=== PATIENT | female | born 1995 | race Hispanic/Latino ===

== ENCOUNTER 2017-07-14 14:02 | Emergency (ER) | payer SELFPAY ==
[2017-07-14 14:40] LABS: #Eosinphils 0.1 thou/uL (0.0-0.7); #Lymphocytes 2.3 thou/uL (1.20-3.40); #Monocytes 0.4 thou/uL (0.11-0.59); %Basophils 0.5 % (0.0-1.0); %Eosinophils 1.8 % (0.0-10.0); %Lymphocytes 33.3 % (28.0-48.0); Hematocrit 46.8 % (36.0-47.0); Red Blood Cell (RBC) Count 5.14 mill/uL (4.00-5.20); White Blood Cell (WBC) Count 6.8 thou/uL (4.8-10.8)
[2017-07-14 15:00] LABS: Bilirubin Negative (Negative); Blood, Urine Trace (Negative); Glucose, Urine (Dipstick) Negative (Negative); Ketone, Urine Negative (Negative); Nitrite Negative (Negative); Protein, Urine (Dipstick) Negative (Neg-Trace)
[2017-07-14 15:03] LABS: ALT (SGPT) 12 U/L (8-55); AST (SGOT) 15 U/L (5-34); Alkaline Phosphatase 90 U/L (40-150); Anion Gap 11 mmol/L (10-20); BUN (Urea Nitrogen) 11 mg/dL (7.0-18.7); Bilirubin, Total 0.6 mg/dL (0.2-1.2); Calc. Creatinine Clearance 0 mL/min (70-130); Calcium 9.4 mg/dL (7.8-10.44); Carbon Dioxide 26 mmol/L (22-29); Chloride 105 mmol/L (98-107); Estimated GFR-MDRD Greater than 90; Lipase 24 U/L (8-78); Protein, Total 7.4 g/dL (6.0-8.3)
[2017-07-14 15:14] LABS: Bacteria/HPF Rare-Few HPF (None Seen); Hyaline Casts/LPF 0-3 HYALINE CAST LPF (0-3 Hyaline); RBC/HPF 0-3 HPF (0-3); Squamous Epithelial 0-3 HPF (0-3); WBC/HPF 0-3 HPF (0-3)
--- NOTE | 2017-07-14 17:02 | ULT ---
PELVIC SONOGRAM TRANSVAGINAL IMAGING WITH DUPLEX EVALUATION 07/14/17 HISTORY: Pelvic pain. FINDINGS: The urinary bladder is decompressed. The uterus is retroverted with a heterogeneous echotexture and measures 7.4 cm in length. Endometrium is 0.9 cm in thickness with a small amount of endometrial flu id. No free fluid is evident within the pelvis. The right ovary is 4.3 cm in length and the left 3.4 cm. Each contains follicles and demonstrates good color and spectral doppler flow. IMPRESSION: Small amount of endometrial fluid. No significant abnormalities are demonstrated. POS: [facility]
== END 2017-07-14 17:38 | disposition home or self-care (01) ==
LOC: ERS 14:02
DX: R10.2 Pelvic and perineal pain (principal)
CPT/HCPCS: 36415; 76856; 80053; 81003; 81015; 83690; 84703; 85025; 87480; 87491; 87510; 87591; 87660; 96372; J2270

== ENCOUNTER 2017-10-23 03:53 | Emergency (ER) | payer OTHER, SELFPAY ==
[2017-10-23] MEDS ORDERED: diphenhydrAMINE 50 MG/ML VIAL ONE (04:21)
[2017-10-23] MEDS ORDERED: Ketorolac Tromethamine 30 MG/ML VIAL ONE (04:21)
[2017-10-23] MEDS ORDERED: Prochlorperazine 10 MG/2 ML VIAL ONE (05:02)
== END 2017-10-23 05:28 | disposition home or self-care (01) ==
LOC: SCSER 03:53
DX: R51 Headache (principal)
CPT/HCPCS: 96361; 96374; 96375; J0780; J1200; J1885

== ENCOUNTER 2017-10-29 17:48 | Emergency (ER) | payer OTHER ==
--- NOTE | 2017-10-29 18:41 | RAD ---
PORTABLE CHEST: 10/29/17 HISTORY: Cough. The lungs are clear. The heart and mediastinum are unremarkable. IMPRESSION: No acute abnormality. POS: [facility]
[2017-10-29 19:05] LABS: Bilirubin Negative (Negative); Blood, Urine Small (Negative); Clarity CLEAR (Clear); Glucose, Urine (Dipstick) Negative (Negative); Leukocyte Trace (Negative); Nitrite Negative (Negative); Protein, Urine (Dipstick) Negative (Neg-Trace); Specific Gravity, Urine 1.009 (1.002-1.036); Urobilinogen 0.2 mg/dL (0.2-1.0); pH, Urine 7.5 (5.0-9.0)
[2017-10-29 19:08] LABS: Bacteria/HPF Rare-Few HPF (None Seen); Hyaline Casts/LPF 0-3 HYALINE CAST LPF (0-3 Hyaline); Pathc Cast-AUWi Flag 0.13 (0-2.49); RBC/HPF None Seen HPF (0-3); Squamous Epithelial 0-3 HPF (0-3); WBC/HPF 0-3 HPF (0-3)
[2017-10-29 19:18] LABS: #Basophils 0.1 thou/uL (0.0-0.2); #Eosinphils 0.1 thou/uL (0.0-0.7); #Monocytes 0.4 thou/uL (0.11-0.59); #Neutrophils 5.3 thou/uL (1.40-6.50); %Basophils 0.7 % (0.0-1.0); %Eosinophils 1.2 % (0.0-10.0); %Lymphocytes 25.9 % (28.0-48.0); %Neutrophils 67.2 % (31.0-61.0); Hemoglobin 14.4 g/dL (12.0-16.0); Mean Corpuscular HGB CONC 33.8 g/dL (32.0-36.0); Mean Corpuscular Hemoglobin 30.9 pg (25.0-35.0); Mean Corpuscular Volume 91.5 fl (77.0-87.0); Mean Platelet Volume 7.1 fL (7.4-10.4); Platelet Count 276 thou/uL (130-400); RBC Distribution Width 11.6 % (11.5-14.5); Red Blood Cell (RBC) Count 4.64 mill/uL (4.00-5.20); White Blood Cell (WBC) Count 7.9 thou/uL (4.8-10.8)
[2017-10-29 19:22] LABS: BHCG - Serum Negative (NEGATIVE); Pregs Control Background? CLEAR/WHITE (CLR/WHITE); Pregs Control Bar Appear? YES (CONTROL BAR)
[2017-10-29] MEDS ORDERED: Morphine 4 MG/ML Carpuject ONE (19:36)
[2017-10-29] MEDS ORDERED: Ketorolac Tromethamine 30 MG/ML VIAL ONE (19:36)
[2017-10-29 19:37] LABS: ALT (SGPT) 9 U/L (8-55); AST (SGOT) 14 U/L (5-34); Albumin 4.2 g/dL (3.5-5.0); Alkaline Phosphatase 98 U/L (40-150); Anion Gap 12 mmol/L (10-20); BUN (Urea Nitrogen) 10 mg/dL (7.0-18.7); Bilirubin, Total 0.6 mg/dL (0.2-1.2); Calc. Creatinine Clearance 0 mL/min (70-130); Calcium 8.9 mg/dL (7.8-10.44); Carbon Dioxide 22 mmol/L (22-29); Chloride 109 mmol/L (98-107); Estimated GFR-MDRD Greater than 90; Globulin 2.6 g/dL (2.4-3.5); Glucose 87 mg/dL (70-105); Potassium 3.8 mmol/L (3.5-5.1); Protein, Total 6.8 g/dL (6.0-8.3); Sodium 139 mmol/L (136-145)
--- NOTE | 2017-10-29 20:04 | CT ---
CT HEAD WITHOUT CONTRAST 10/29/17 Multiple axial tomograms obtained through the head without IV enhancement. HISTORY: Headache. Ventricles have normal size and position. There is no evidence of intracranial mass or hemorrhage. Si nuses and mastoids are well aerated and clear. IMPRESSION: No acute abnormality. POS: [facility]
--- NOTE | 2017-10-29 20:41 | CT ---
CT CERVICAL SPINE: 10/29/17 Multiple axial tomograms were obtained of the cervical spine with multiplanar reconstruction. HISTORY: Headache and neck pain. Cervical vertebrae maintain normal height and alignment. No fracture. No abnormality identified. IMPRESSION: Unremarkable CT cervical spine. POS: [facility]
[2017-10-29 20:42] LABS: Color Of CSF Supernatant COLORLESS (Colorless); Tube # 2; Unspun CSF Color COLORLESS (Colorless)
[2017-10-29 20:49] LABS: CSF Source CSF; Clarity Clear (Clear); RBC Count - Manual 0 /cumm (None Seen); RBC Count - Manual 38 /cumm (None Seen); Tube # 1; Tube # 4; WBC/NonHematics Count - Manual 2 /cumm (0-5); WBC/NonHematics Count - Manual 4 /cumm (0-5)
[2017-10-29 22:07] LABS: CSF, Glucose 60 mg/dl (40-70)
[2017-10-29 22:12] LABS: CSF, Protein 24 mg/dL (15-40)
[2017-10-29] MEDS ORDERED: diphenhydrAMINE 50 MG/ML VIAL ONE (22:26)
[2017-10-29] MEDS ORDERED: Metoclopramide HCl 10 MG/2 ML VIAL ONE (22:26)
--- NOTE | 2017-10-30 04:11 | PDOC.OP ---
Operative Note - Operative Note Operative Note: PROCEDURE: LUMBAR PUNCTURE DATE: 10/29/17 INDICATION: Headache, Neck pain/stiffness PROCEDURE PRINT [employer]OP STENOGRAPHER: Maty Jim MD ATTENDING PHYSICIAN: Dakota Nj MD In Attendance Yes CONSENT: Consent was obtained from the patien prior to the procedure. Indications, risks , and benefits were explained at length. PROCEDURE SUMMARY: A time-out was performed. My hands were washed immediately prior to the procedure. I wore a mask with protective and sterile gloves throughout the procedure. The patient was placed in the seated position with help from the nursing staff. The area was cleansed and draped in usual sterile fashion using betadine scrub. Anesthesia was achieved with 1% lidocaine. A 20-gauge 3.5-inch spinal needle was placed in the L4-L5 lumbar interspace. On the first attempt, clear colored cerebral spinal fluid was obtained. CSF was collected into 4 tubes. These were sent for the usual tests, including 1 tube to be held for further analysis if needed. A sterile bandaid was placed over the puncture site. The patient had no immediate complications and tolerated the procedure well. Estimated blood loss was <10 mL.
== END 2017-10-29 22:50 | disposition home or self-care (01) ==
LOC: ERS 17:48
DX: R51 Headache (principal); M54.2 Cervicalgia
CPT/HCPCS: 36415; 62270; 70450; 71045; 72125; 80053; 81003; 81015; 82945; 83605; 84157; 84703; 85025; 87040; 87070; 87081; 87086; 87205; 87430; 89051; 94760; 96361; 96365; 96375; J1200; J1885; J2270; J2765

== ENCOUNTER 2018-05-22 18:43 | Emergency (ER) | payer OTHER ==
[2018-05-22 19:30] LABS: #Eosinphils 0.1 thou/uL (0.0-0.7); #Lymphocytes 2.2 thou/uL (1.20-3.40); #Monocytes 0.5 thou/uL (0.11-0.59); #Neutrophils 6.5 thou/uL (1.40-6.50); %Basophils 0.3 % (0.0-1.0); %Eosinophils 0.8 % (0.0-10.0); %Lymphocytes 23.8 % (21.0-51.0); %Monocytes 4.9 % (0.0-10.0); %Neutrophils 70.1 % (42.0-75.0); Hemoglobin 15.3 g/dL (12.0-16.0); Mean Corpuscular Hemoglobin 31.2 pg (27.0-31.0); Mean Corpuscular Volume 89.2 fL (78.0-98.0); Mean Platelet Volume 6.9 fL (7.4-10.4); Platelet Count 271 thou/uL (130-400); RBC Distribution Width 11.7 % (11.5-14.5); White Blood Cell (WBC) Count 9.2 thou/uL (4.8-10.8)
[2018-05-22 20:08] LABS: Bilirubin Negative (Negative); Blood, Urine Large (Negative); Clarity CLEAR (Clear); Glucose, Urine (Dipstick) Negative (Negative); Leukocyte Negative (Negative); Nitrite Negative (Negative); Protein, Urine (Dipstick) Negative (Neg-Trace); Specific Gravity, Urine 1.007 (1.002-1.036)
[2018-05-22] MEDS ORDERED: Ketorolac Tromethamine 60 MG/2 ML VIAL ONE (20:10)
[2018-05-22 20:11] LABS: Bacteria/HPF None Seen HPF (None Seen); Hyaline Casts/LPF 0-3 HYALINE CAST LPF (0-3 Hyaline); RBC/HPF GREATER THAN 50-TNTC HPF (0-3); Squamous Epithelial None Seen HPF (0-3); WBC/HPF 0-3 HPF (0-3)
--- NOTE | 2018-05-22 21:27 | ULT ---
PELVIC ULTRASOUND: Comparison: None. Date: 05-22-18 History: Positive test, vaginal bleeding. Technique: Multiplanar sonographic imaging of the pelvis was obtained with endovaginal imaging. The o varies are assessed with color flow and spectral analysis. FINDINGS: The uterus is retroflexed and measures 9.6 x 4.5 x 6.0 cm. The endometrial stripe measures approximat talon 9 mm in transverse dimension. No intrauterine gestational sac is noted. Left ovary measures 2.6 x 1.8 x 3.2 cm and demonstrates normal blood flow without evidence for mass. Right ovary measures 3.9 x 2.1 x 2.3 cm and demonstrates normal blood flow without evidence for mass. There is trace free fluid seen in the pelvic cul-de-sac. IMPRESSION: No intrauterine gestational sac seen. This could signify a normal early , spontaneous aborti on or sonographically occult ectopic . Correlation with quantitative Beta HCG at this time a nd in 48 hours is advised. If clinically warranted, follow up pelvic ultrasound in 48 hours may be be neficial as well. POS: [facility]
== END 2018-05-22 20:37 | disposition home or self-care (01) ==
LOC: ERS 18:43
DX: O20.0 Threatened abortion (principal); Z3A.08 8 weeks gestation of pregnancy
CPT/HCPCS: 36415; 76856; 81003; 81015; 84702; 85025; 86900; 86901; 96372; J1885

== ENCOUNTER 2018-10-24 03:24 | Emergency (ER) | payer OTHER ==
[2018-10-24] MEDS ORDERED: diphenhydrAMINE 50 MG/ML VIAL ONE (03:33)
[2018-10-24] MEDS ORDERED: methylPREDNISolone Sod Succ/PF 125 MG/2 ML VIAL ONE (03:33)
[2018-10-24] MEDS ORDERED: Metoclopramide HCl 10 MG/2 ML VIAL ONE (03:33)
[2018-10-24] MEDS ORDERED: Ketorolac Tromethamine 30 MG/ML VIAL ONE (03:33)
== END 2018-10-24 04:41 | disposition home or self-care (01) ==
LOC: SCSER 03:24
DX: R51 Headache (principal)
CPT/HCPCS: 96365; 96375; J1200; J1885; J2765; J2930

== ENCOUNTER 2019-01-02 13:04 | Outpatient (CLI) | payer OTHER ==
--- NOTE | 2019-01-02 15:23 | ULT ---
TRANSABDOMINAL AND TRANSVAGINAL PELVIC ULTRASOUND WITH AYERS SCALE AND COLOR FLOW AND SPECTRAL DOPPLER IMAGING: HISTORY: Pain in the left lower quadrant and vaginal spotting. FINDINGS: The uterus measures 7.9 x 4 x 7.4 cm. The right ovary measures 2.9 x 3.1 x 1.3 cm. The left ovary m easures 3.2 x 1.8 x 2.5. There is a 2.3 cm cyst. Flow is demonstrated to both ovaries. No free flu id is seen in the cul-de-sac. A single intrauterine gestational sac is seen in the lower endometrial cavity with heart rate o f 126 b.p.m. [place]-rump length measure s0.8 cm corresponding to an estimated gestational age of 6 we eks 5 days and CAMILA at 08/23/2019. IMPRESSION: Single live intrauterine of 6 weeks 5 days, estimated gestational age and estimated date of delivery at 08/23/2019. POS: [facility]
== END 2019-01-02 13:05 | disposition home or self-care (01) ==
LOC: ULT 13:04
PROVIDERS: ATTEND Family Medicine
DX: O99.89 Other specified diseases and conditions complicating pregnancy, childbirth and the puerperium (principal); R10.32 Left lower quadrant pain; Z3A.01 Less than 8 weeks gestation of pregnancy; Z32.01 Encounter for pregnancy test, result positive
CPT/HCPCS: 36415; 76856; 84702

== ENCOUNTER 2019-02-12 18:20 | Emergency (ER) | payer OTHER ==
[2019-02-12 20:10] LABS: #Eosinphils 0.1 thou/uL (0.0-0.7); #Lymphocytes 2.5 thou/uL (1.20-3.40); #Monocytes 0.5 thou/uL (0.11-0.59); #Neutrophils 6.3 thou/uL (1.40-6.50); %Basophils 0.4 % (0.0-1.0); %Lymphocytes 26.2 % (21.0-51.0); %Monocytes 5.2 % (0.0-10.0); %Neutrophils 67.2 % (42.0-75.0); Hemoglobin 12.1 g/dL (12.0-16.0); Mean Corpuscular HGB CONC 34.2 g/dL (32.0-36.0); Mean Corpuscular Hemoglobin 30.3 pg (27.0-31.0); Mean Corpuscular Volume 88.8 fL (78.0-98.0); Mean Platelet Volume 7.3 fL (7.4-10.4); Platelet Count 257 thou/uL (130-400); RBC Distribution Width 11.7 % (11.5-14.5); Red Blood Cell (RBC) Count 3.98 mill/uL (4.20-5.40); White Blood Cell (WBC) Count 9.4 thou/uL (4.8-10.8)
[2019-02-12] MEDS ORDERED: Acetaminophen 500 MG TAB ONE (20:21)
[2019-02-12 20:32] LABS: ALT (SGPT) 12 U/L (8-55); AST (SGOT) 13 U/L (5-34); Albumin 3.9 g/dL (3.5-5.0); Alkaline Phosphatase 55 U/L (40-150); Anion Gap 11 mmol/L (10-20); BUN (Urea Nitrogen) 7 mg/dL (7.0-18.7); Bilirubin, Total 0.4 mg/dL (0.2-1.2); Calc. Creatinine Clearance 0 mL/min (70-130); Calcium 9.1 mg/dL (7.8-10.44); Carbon Dioxide 24 mmol/L (22-29); Chloride 105 mmol/L (98-107); Estimated GFR-MDRD Greater than 90; Globulin 2.5 g/dL (2.4-3.5); Glucose 81 mg/dL (70-105); Lipase 20 U/L (8-78); Potassium 3.4 mmol/L (3.5-5.1); Protein, Total 6.4 g/dL (6.0-8.3); Sodium 137 mmol/L (136-145)
[2019-02-12 20:43] LABS: Bilirubin Negative (Negative); Blood, Urine Negative (Negative); Clarity CLOUDY (Clear); Glucose, Urine (Dipstick) Negative (Negative); Leukocyte Trace (Negative); Nitrite Negative (Negative); Protein, Urine (Dipstick) Negative (Neg-Trace); pH, Urine 7.5 (5.0-9.0)
[2019-02-12 20:44] LABS: Bacteria/HPF None Seen HPF (None Seen); Hyaline Casts/LPF 0-3 HYALINE CAST LPF (0-3 Hyaline); RBC/HPF 0-3 HPF (0-3); WBC/HPF 0-3 HPF (0-3)
--- NOTE | 2019-02-12 21:16 | ULT ---
Right upper quadrant ultrasound: 02/12/2019 COMPARISON: None HISTORY: Right-sided pain TECHNIQUE: Multiplanar grayscale sonographic imaging of the right upper quadrant provided. FINDINGS: The pancreas is grossly unremarkable. No focal liver lesion or intrahepatic biliary dilatat ion is seen. 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 The common bile duct measures 3 mm, within normal limits. The right kidney measures 10.3 cm in craniocaudal dimension and demonstrates no stone hydronephrosis or mass lesion. IMPRESSION: Unremarkable right upper quadrant ultrasound aside from positive Tolbert sign.
--- NOTE | 2019-02-12 22:08 | ULT ---
PELVIC ULTRASOUND: Date: 02-12-19 Comparison: None. History: Pelvic/right sided pain. 29-year-old female. Technique: Multiplanar grayscale sonographic imaging of the pelvis obtained. FINDINGS: The cervix measures 3.6 cm. A single intrauterine gestation is noted. No evidence for placental previ a or abruption. Right ovary measures 2.1 x 1.3 cm and demonstrates normal appearance. Left ovary measures 4.0 x 1.6 x 3.1 cm and demonstrates a normal appearance. The appendix could not be visualized on this exam. Feta l heart rate is 160 beats/minute. biometry: BPD 2.1 cm 13 weeks 2 days HC 8.3 cm 13 weeks 4 days AC 6.4 cm 13 weeks 1 days FL 9 mm 12 weeks 5 days Average age based on ultrasound is 13 weeks 0 days with estimated date of delivery on 08-20-19. Amnio tic fluid volume is qualitatively normal. anatomy could not be assessed at this gestational age. IMPRESSION: Single intrauterine gestation with heart rate of 160 beats/minute. The appendix could not be vi sualized on this exam. POS: [facility]
[2019-02-14 22:32] LABS: Chlamydia by PCR Not Detected (NotDetected); GC by PCR Not Detected (NotDetected)
== END 2019-02-12 23:20 | disposition home or self-care (01) ==
LOC: ERS 18:20
DX: O99.89 Other specified diseases and conditions complicating pregnancy, childbirth and the puerperium (principal); R10.11 Right upper quadrant pain; Z3A.13 13 weeks gestation of pregnancy
CPT/HCPCS: 36415; 76705; 76856; 80053; 81003; 81015; 83690; 84702; 85025; 87480; 87491; 87510; 87591; 87660; 96360

== ENCOUNTER 2019-02-20 15:43 | Emergency (ER) | payer OTHER ==
[2019-02-20 16:09] LABS: #Eosinphils 0.3 thou/uL (0.0-0.7); #Lymphocytes 2.1 thou/uL (1.20-3.40); #Monocytes 0.6 thou/uL (0.11-0.59); #Neutrophils 6.5 thou/uL (1.40-6.50); %Basophils 0.3 % (0.0-1.0); %Eosinophils 2.7 % (0.0-10.0); %Monocytes 6.2 % (0.0-10.0); %Neutrophils 68.8 % (42.0-75.0); Mean Corpuscular HGB CONC 35.3 g/dL (32.0-36.0); Mean Corpuscular Volume 87.7 fL (78.0-98.0); Platelet Count 248 thou/uL (130-400); RBC Distribution Width 11.7 % (11.5-14.5); Red Blood Cell (RBC) Count 3.89 mill/uL (4.20-5.40); White Blood Cell (WBC) Count 9.5 thou/uL (4.8-10.8)
[2019-02-20] MEDS ORDERED: Acetaminophen 325 MG TAB ONE (16:57)
[2019-02-20 17:17] LABS: Bilirubin Negative (Negative); Blood, Urine Negative (Negative); Clarity CLEAR (Clear); Glucose, Urine (Dipstick) Negative (Negative); Leukocyte Negative (Negative); Nitrite Negative (Negative); Protein, Urine (Dipstick) Negative (Neg-Trace); Specific Gravity, Urine 1.005 (1.002-1.036); Urobilinogen 0.2 mg/dL (0.2-1.0)
--- NOTE | 2019-02-20 17:51 | ULT ---
Limited obstetrical ultrasound: 02/20/2019 COMPARISON: None HISTORY: Abdominal pain for 2 hours TECHNIQUE: Multiplanar grayscale sonographic imaging of the gravid uterus obtained. FINDINGS: Single intrauterine gestation present with breech presentation and heart rate of 155 bpm. Cervical length is approximately 3.2 cm. Amniotic fluid volume appears qualitatively normal. Placenta located anteriorly with no evidence for previa or abruption. biometry: Biparietal diameter 2.5 cm 14 weeks 2 days Head circumference 9.6 cm 14 weeks 3 days Abdominal circumference 8.2 cm 14 weeks 4 days Femur length 1.3 cm 13 weeks 6 days Average age based on ultrasound is 14 weeks 2 days. Estimated date of delivery is 08/19/2019. IMPRESSION: Unremarkable limited obstetrical ultrasound.
== END 2019-02-20 18:50 | disposition home or self-care (01) ==
LOC: ERS 15:43
DX: O99.89 Other specified diseases and conditions complicating pregnancy, childbirth and the puerperium (principal); R10.32 Left lower quadrant pain; Z3A.14 14 weeks gestation of pregnancy
CPT/HCPCS: 36415; 76805; 81003; 84702; 85025; 86900; 86901

== ENCOUNTER 2019-03-26 14:14 | Emergency (ER) | payer OTHER ==
[2019-03-26] MEDS ORDERED: Acetaminophen 325 MG TAB ONE (14:47)
[2019-03-26 14:52] LABS: Hemoglobin 12.5 g/dL (12.0-16.0); Mean Corpuscular HGB CONC 34.7 g/dL (32.0-36.0); Mean Corpuscular Volume 89.5 fL (78.0-98.0); Mean Platelet Volume 7.2 fL (7.4-10.4); Platelet Count 231 thou/uL (130-400); RBC Distribution Width 12.2 % (11.5-14.5); Red Blood Cell (RBC) Count 4.02 mill/uL (4.20-5.40); White Blood Cell (WBC) Count 16.7 thou/uL (4.8-10.8)
[2019-03-26 15:09] LABS: Band 13 % (5-11); Lymphocytes 10 % (21-51); MDiff Complete? YES; Monocytes 3 % (0-10); Neutrophil 72 % (42-75); Platelet Morphology Comment Appears Adequate; RBC Morphology Normal; Reactive Lymphocytes 2 % (0-10)
[2019-03-26] MEDS ORDERED: diphenhydrAMINE 50 MG/ML VIAL ONE (15:09)
[2019-03-26] MEDS ORDERED: Metoclopramide HCl 10 MG/2 ML VIAL ONE (15:09)
[2019-03-26 15:11] LABS: ALT (SGPT) 10 U/L (8-55); AST (SGOT) 14 U/L (5-34); Albumin 3.8 g/dL (3.5-5.0); Alkaline Phosphatase 71 U/L (40-150); Anion Gap 13 mmol/L (10-20); BUN (Urea Nitrogen) 5 mg/dL (7.0-18.7); Bilirubin, Total 0.5 mg/dL (0.2-1.2); CK (CPK) 50 U/L (29-168); Calc. Creatinine Clearance 0 mL/min (70-130); Carbon Dioxide 23 mmol/L (22-29); Chloride 104 mmol/L (98-107); Estimated GFR-MDRD Greater than 90; Globulin 2.9 g/dL (2.4-3.5); Glucose 83 mg/dL (70-105); Potassium 3.4 mmol/L (3.5-5.1); Protein, Total 6.7 g/dL (6.0-8.3); Sodium 137 mmol/L (136-145)
[2019-03-26 15:17] LABS: Bilirubin Negative (Negative); Blood, Urine Negative (Negative); Clarity CLEAR (Clear); Glucose, Urine (Dipstick) Negative (Negative); Leukocyte Trace (Negative); Nitrite Negative (Negative); Protein, Urine (Dipstick) Negative (Neg-Trace); Specific Gravity, Urine 1.004 (1.002-1.036)
[2019-03-26 15:19] LABS: Bacteria/HPF None Seen HPF (None Seen); Hyaline Casts/LPF 0-3 HYALINE CAST LPF (0-3 Hyaline); Pathc Cast-AUWi Flag 0.13 (0-2.49); RBC/HPF None Seen HPF (0-3); Squamous Epithelial 0-3 HPF (0-3); WBC/HPF None Seen HPF (0-3)
--- NOTE | 2019-03-26 15:52 | CT ---
CT BRAIN WITHOUT CONTRAST: HISTORY: Headache. FINDINGS: Comparison is made with the exam of 10/29/2017. No evidence of infarct, hemorrhage, midline shift, or abnormal extraaxial fluid collections are seen. The ventricular size is normal and the basilar cisterns patent. The bony calvarium is intact. The visualized paranasal sinuses and mastoid air cells are well aerated. IMPRESSION: No CT evidence of acute intracranial process. POS: [facility]
--- NOTE | 2019-03-26 15:57 | RAD ---
PORTABLE CHEST 1 VIEW: DATE: 03/26/2019. TIME: 3:04 p.m. HISTORY: Chest pain. FINDINGS: Comparison is made with the exam of 10/29/2017. The cardiomediastinum is normal. The lungs are expanded and clear. The bony thorax is normal. IMPRESSION: Normal exam. POS: [facility]
[2019-03-26] MEDS ORDERED: Sucralfate 1 GM/10 ML UDCUP ONE (16:01)
--- NOTE | 2019-03-26 16:22 | ULT ---
BILATERAL LOWER EXTREMITY VENOUS DOPPLER ULTRASOUND: HISTORY: A 19-week female (24-year-old) with bilateral lower extremity calf pain. TECHNIQUE: Ramírez-scale ultrasound with color-flow and spectral Doppler imaging of the deep venous systems of the lower extremities was performed bilaterally. FINDINGS: There is good flow, compressibility, and augmentation noted in the common femoral, femoral, deep femo ral, popliteal, posterior tibial, and greater saphenous veins. IMPRESSION: No evidence of deep venous thrombosis in either lower extremity. POS: [facility]
--- NOTE | 2019-03-26 17:01 | MRI ---
MR ANGIOGRAPHY OF THE CEREBRAL CIRCULATION: INDICATIONS: Headache. TECHNIQUE: MR angiogram performed of the cerebral circulation without IV contrast. [id number] images without contrast obtained with multiplanar reconstruction and 3D post processin g. FINDINGS: Artifact obscures portions of the intracranial internal carotid arteries. The cerebral arteries are poorly evaluated but appear patent. The anterior cerebral arteries, the mi ddle cerebral arteries, and the posterior cerebral arteries appear patent and symmetric. The basilar artery is patent. IMPRESSION: Limited examination due to motion artifact. No abnormality identified. POS: [facility]
--- NOTE | 2019-03-26 17:05 | MRI ---
MR VENOGRAM OF THE CEREBRAL CIRCULATION: INDICATIONS: Headache. Assess for venous thrombosis. TECHNIQUE: MR venogram of the cerebral circulation is obtained with [id number] imaging without contrast with multiplanar reconstruction and 3D post processing. FINDINGS: The dural venous sinuses are patent. The sagittal sinus, the transverse sinus, and the sigmoid sinus appear patent. There is mild narrowing of the left transverse sinus. There is no evidence of dural venous sinus thrombosis. IMPRESSION: The dural venous sinuses are patent. POS: [facility]
--- NOTE | 2019-03-26 17:52 | MRI ---
MRI BRAIN WITHOUT CONTRAST: INDICATIONS: Headache. TECHNIQUE: Multiplanar, multisequential imaging of the brain obtained. FINDINGS: The exam is limited due to artifact from dental appliances. The diffusion-weighted sequence is subop timal. There is motion artifact on the other sequences. The ventricles have normal size and position. There is no evidence of mass or edema. No significant white matter abnormality identified. The cerebral arteries show expected flow voids. The dural mark ous sinuses appear patent. IMPRESSION: No acute findings. POS: [facility]
== END 2019-03-26 19:11 | disposition home or self-care (01) ==
LOC: ERS 14:14
DX: O99.89 Other specified diseases and conditions complicating pregnancy, childbirth and the puerperium (principal); R51 Headache; R42 Dizziness and giddiness; Z3A.19 19 weeks gestation of pregnancy
CPT/HCPCS: 70450; 70544; 70551; 71045; 80053; 81003; 81015; 82550; 84484; 84702; 85025; 93005; 93970; 96361; 96374; 96375; J1200; J2765

== ENCOUNTER 2019-04-20 08:42 | Outpatient (CLI) | payer OTHER ==
--- NOTE | 2019-04-20 11:08 | ULT ---
OB ULTRASOUND: INDICATION: anatomy. FINDINGS: Single viable intrauterine . Gestational age by ultrasound is 22 weeks 6 days. BPD: 23 weeks 0 days. HC: 23 weeks 0 days. AC: 22 weeks 5 days. FL: 22 weeks 3 days. EFW: 516 grams. Placenta: Anterior. Presentation: Vertex. heart rate: 138. Amniotic fluid volume: Adequate. GARRET of 12.38 cm. Cervical length: 5.6 cm. anatomy evaluated including intracranial contents: 4-chamber heart, stomach, kidneys, cord ins ertion, bladder, spine, lips, nose, extremities, and 3-vessel cord. No abnormality identified. IMPRESSION: A 22-week 6-day gestation by ultrasound measurement. No abnormality identified. POS: [facility]
== END 2019-04-20 08:43 | disposition home or self-care (01) ==
LOC: BICULT 08:42
PROVIDERS: ATTEND Family Medicine
DX: Z34.92 Encounter for supervision of normal pregnancy, unspecified, second trimester (principal); Z3A.22 22 weeks gestation of pregnancy
CPT/HCPCS: 76805

== ENCOUNTER 2019-06-26 17:25 | Day surgery (SDC) | payer OTHER ==
[2019-06-26 17:51] VITALS: BP 101/63; TEMP 98.2; BMI 28.3
[2019-06-26] MEDS ORDERED: hydrALAZINE 20 MG/ML VIAL SLOW IVP PRN (18:02)
[2019-06-26] MEDS ORDERED: Lactated Ringer's 1,000 ML IV SCH ×2 (18:15)
--- NOTE | 2019-06-26 19:13 | ULT ---
EXAM: Pelvic ultrasound HISTORY: 31 week old with pain. Evaluate cervical length, position, and GARRET COMPARISON: None TECHNIQUE: Multiple grayscale and color Doppler images were obtained in a limited transabdominal pelv ic ultrasound. FINDINGS: There is an intrauterine in cephalic presentation with heart rate of 122 bpm. The cervix is normal in length measuring 4 cm. The placenta is anterior in location without evidence of placenta previa. GARRET is 7.3 cm, which is normal. IMPRESSION: Single live intrauterine in cephalic presentation
--- NOTE | 2019-06-26 19:52 | PRG ---
DATE OF SERVICE: 06/26/2019 PRESENTING COMPLAINT: Possible contractions at 32 weeks' gestation. HISTORY OF PRESENT ILLNESS: Ms. Vines is a 24-year-old 4, para 2, AB1, x1, who presents complaining of possible contractions. Denies rupture of membranes. The patient reports she had a previous 35-week labor and a 37-week early term delivery. She sees Dr. Andrés Torres and reports uncomplicated . STEAM TABLE WORKER HISTORY: As noted. The patient has not had corticosteroids and is not receiving progesterone IM. Antepartum record is not on the unit. MEDICAL HISTORY: None. SURGICAL HISTORY: None. ALLERGIES: DENIES. MEDICATIONS: vitamins. SOCIAL HISTORY: Denies tobacco, alcohol, or drug abuse. FAMILY HISTORY: Noncontributory. REVIEW OF SYSTEMS: Noncontributory. PHYSICAL EXAMINATION: GENERAL: female, in no acute distress. VITAL SIGNS: Temperature 98.5, respirations 18, pulse 85, blood pressure 118/72. HEENT: Within normal limits. LUNGS: Clear to auscultation bilaterally. HEART: Regular rhythm. BREASTS: No masses bilaterally. ABDOMEN: Soft and nontender without rebound or guarding. VULVA: Without lesions. VAGINA: Without discharge. CERVIX: Soft, closed, long and high. Cephalic presentation. EXTREMITIES: Without clubbing, cyanosis, or edema. fibronectin was collected, but the patient revealed that she and her had intercourse the night before and so results would be invalid. Ultrasound was performed, it revealed a vertex presentation and GARRET of 7.3, and a cervix measuring 4 cm in length. monitoring is carried out for greater than an hour. No significant contractions were noted. A category 1 heart rate tracing was noted with baseline of 140s. IMPRESSION: Discomforts of , no evidence of labor at 32 weeks' gestation. PLAN: Discharge home. ER precautions. Keep scheduled followup with Dr. Torres. Job ID: [id number]
== END 2019-06-26 19:35 | disposition home or self-care (01) ==
LOC: L&D/OP 17:25
PROVIDERS: ATTEND Family Medicine
DX: O47.03 False labor before 37 completed weeks of gestation, third trimester (principal); Z3A.32 32 weeks gestation of pregnancy
CPT/HCPCS: 76815; 96360; 96361; 99282

== ENCOUNTER 2019-07-08 13:50 | Day surgery (SDC) | payer OTHER ==
[2019-07-08 14:19] VITALS: BMI 28.9
[2019-07-08] MEDS ORDERED: hydrALAZINE 20 MG/ML VIAL SLOW IVP PRN (15:02)
[2019-07-08] MEDS ORDERED: Lactated Ringer's 2,000 ML IV SCH (15:15)
[2019-07-08] MEDS ORDERED: Acetaminophen 500 MG TAB PO SCH (15:45)
--- NOTE | 2019-07-08 16:08 | PRG ---
DATE OF SERVICE: 07/08/2019 PRIMARY OB: Andrés Torres MD CHIEF COMPLAINT: Abdominal pain. HISTORY OF PRESENT ILLNESS: The patient is a 24-year-old, G4, P2 female with an intrauterine at 34 weeks and a day, who presented after experiencing uterine contractions, painful, lasting about 30 to 40 seconds every 7 to 8 minutes downstairs in telemetry. The patient had been put on light duty due to significant ligament pain since about 16 weeks' gestation. The patient reports that she continues to have ligament pain that she has noticed since early in her since second trimester. She states that these pains are different that they come and go like contractions. She does have a history of a delivery at 35 weeks with her previous and at 37 weeks. The patient was initially seen in the emergency room downstairs. Her cervix was checked and found to be 1 cm dilated. The patient reports she has had intercourse within the last 24 hours. The patient denies any recent illness with fever, cough, headache, chest pain, shortness of breath, nausea, vomiting, diarrhea, constipation, hip problems, knee problems, muscle weakness, vaginal bleeding or leakage of fluid, diarrhea or constipation, urinary urgency or frequency. PAST MEDICAL HISTORY: Negative. PAST SURGICAL HISTORY: Negative. ALLERGIES: NO KNOWN DRUG ALLERGIES. MEDICATIONS: vitamins. SOCIAL HISTORY: Denies drug, alcohol, or tobacco use. REVIEW OF SYSTEMS: Per HPI. PHYSICAL EXAMINATION: VITAL SIGNS: Blood pressure 116/69, heart rate of 96, respiratory rate of 18, temperature 97.9. GENERAL: She appears to be in no acute distress. She is alert and oriented, cooperative, and pleasant to interact with. HEAD: Normocephalic, atraumatic. LUNGS: Clear to auscultation bilaterally. HEART: Regular rate and rhythm. ABDOMEN: Gravid, soft. She does have tenderness to palpation of the uterus to the left than the right in her lower pelvis. She has SI joint tenderness more on the right than the left. She has no CVA tenderness. No paravertebral tenderness. LUNGS: Clear to auscultation bilaterally. HEART: Regular rate and rhythm. The patient is alert and oriented. CERVICAL: Per nursing staff upon coming to the floor, is 1, 30, and -2 station. The uterus palpated soft when the patient reports she is having a contraction. heart tracing shows the fetus at a baseline in the 120s with moderate long-term variability, positive 15 x 15 accelerations, no decelerations. No contractions visible on the monitor. ASSESSMENT AND PLAN: The patient is a 24-year-old female with an intrauterine at 34 weeks and a day and a history of delivery at 35 weeks, presenting for uterine contractions that we were unable to identify on the monitor. The patient is likely experiencing contractions secondary to intercourse in the last 24 hours. She has no evidence of labor at this time. We will hydrate her as she does have an IV in place from the ER evaluation and will get her something to eat and re-evaluate in the next hour or two. The patient does have a history of delivery. However, with a long-closed cervix, at this time I do not anticipate labor. If there is no change in her cervix, we will plan on discharging the patient home. She does have an appointment on Wednesday with her doctor, Dr. Torres. Job ID: [id number]
== END 2019-07-08 16:45 | disposition home or self-care (01) ==
LOC: L&D/OP 13:50
PROVIDERS: ATTEND Family Medicine
DX: O47.03 False labor before 37 completed weeks of gestation, third trimester (principal); O99.89 Other specified diseases and conditions complicating pregnancy, childbirth and the puerperium; R10.2 Pelvic and perineal pain; O09.213 Supervision of pregnancy with history of pre-term labor, third trimester; Z3A.34 34 weeks gestation of pregnancy
CPT/HCPCS: 96360; 96361; 99283

== ENCOUNTER 2019-07-28 17:32 | Day surgery (SDC) | payer OTHER ==
[2019-07-28] MEDS ORDERED: hydrALAZINE 20 MG/ML VIAL SLOW IVP PRN (17:41)
[2019-07-28 18:04] VITALS: BP 117/66; TEMP 98.6
[2019-07-28 18:05] VITALS: BMI 29.2
[2019-07-28 18:35] LABS: Amnisure Test No Membranes Rupture (No Rupture)
[2019-07-28 18:36] LABS: Amnisure Internal Control QC ACCEPTABLE (ACCEPTABLE)
--- NOTE | 2019-07-28 19:34 | PDOC.LDHP ---
Labor and Delivery H&P Chief complaint: loss of fluid HPI: 24 y/o at 37w0d, patient of Dr. Andrés Torres, presents with leaking fluid today at work and irregular ctx. Denies VB or decrease FM. ROS neg for HEENT, cv, pulm, gi, gu, neuro, psych, skin, musculoskeletal or constitutional symptoms other than mentioned above. OB History Details: 2 prior Current complications: none Past Medical History: None Current medications: pre-quincy vitamins Previous surgical history: none Allergies/Adverse Reactions: Allergies Allergy/AdvReac Type Severity Reaction Status Date / Time No Known Allergies Allergy Verified 07/08/19 14:17 Social history: none - Physical Exam Vital signs reviewed and normal: yes General: NAD, resting Lungs: nonlabored breathing Abdomen: gravid Extremeties: no edema FHT: category 1 (120s, mod variability, + accels, no decels) [place] contractions every: irregular - Vaginal Exam cm dilated: 1 (SSE neg for pooling or valsalva) Effacement: 0% Station: -3 - Assessment 24 y/o at 37w0d with no e/o SROM (amnisure negative, no pooling/ valsalva on SSE). status reassuring with reactive NST. - Plan -: D/c home with precautions. Advised to keep all appointments.
[2019-07-28] MEDS ORDERED: FLU VACC QS2019-20(6MOS UP)/PF 60 MCG/0.5 ML SYRINGE IM ONE (20:00)
== END 2019-07-28 19:35 | disposition home or self-care (01) ==
LOC: L&D/OP 17:32
PROVIDERS: ATTEND Family Medicine
DX: O99.89 Other specified diseases and conditions complicating pregnancy, childbirth and the puerperium (principal); N89.8 Other specified noninflammatory disorders of vagina; Z3A.37 37 weeks gestation of pregnancy
CPT/HCPCS: 84112; 87480; 87510; 87660

== ENCOUNTER 2019-08-09 18:45 | Day surgery (SDC) | payer OTHER ==
[2019-08-09 19:26] VITALS: BP 110/59; TEMP 98.7
[2019-08-09] MEDS ORDERED: FLU VACC QS2019-20(6MOS UP)/PF 60 MCG/0.5 ML SYRINGE IM ONE (19:45)
[2019-08-09] MEDS ORDERED: hydrALAZINE 20 MG/ML VIAL SLOW IVP PRN (19:58)
--- NOTE | 2019-08-09 20:25 | PRG ---
DATE OF SERVICE: 08/09/2019 PRIMARY OB: Dr. Andrés Torers. CHIEF COMPLAINT: Abdominal pain. HISTORY OF PRESENT ILLNESS: The patient is a 24-year-old, G4, P2 female with an intrauterine at 38 weeks and 5 days, presenting to Labor and Delivery with abdominal pains that began more intensely since about 12:00 this afternoon. The patient reports that she feels it about every 4 to 5 minutes. She was seen this morning by her primary OB, Dr. Andrés Torres and reports that she was about 4 cm at that time. The patient states that the contractions have intensified over the last several hours. She denies any vaginal bleeding or leakage of fluid. She denies any recent illness, fever, fall, headache, chest pain, shortness of breath, nausea, vomiting, diarrhea, constipation, hip problems, knee problems, muscle weakness, vaginal bleeding, leakage of fluid, or urinary urgency or frequency. PAST MEDICAL HISTORY: Negative. PAST SURGICAL HISTORY: Negative. ALLERGIES: NO KNOWN DRUG ALLERGIES. MEDICATIONS: vitamins. SOCIAL HISTORY: Denies drug, alcohol, or tobacco use. OB LABS: Unavailable at time of dictation. REVIEW OF SYSTEMS: Per HPI. PHYSICAL EXAMINATION: VITAL SIGNS: Blood pressure 110/59, heart rate of 83, respiratory rate 18, saturating 100% on room air, and temperature 98.7. GENERAL: She appears to be in no acute distress. She is alert, oriented, cooperative, and pleasant to interact with. HEAD: Normocephalic and atraumatic. LUNGS: Clear to auscultation bilaterally. HEART: Regular rate and rhythm. ABDOMEN: Gravid and soft. EXTREMITIES: Nontender, nonedematous. CERVICAL EXAM: Per nursing staff. She is 4 cm dilated, 25% effaced, and -1 station. heart tracing baseline is noted to be in the 120s with moderate long-term variability, positive 15 x 15 accelerations, no decelerations. Contractions are about every 8 minutes with some irritability in between. ASSESSMENT AND PLAN: The patient is a 24-year-old multiparous female with an intrauterine at 38 weeks and 5 days, here for uterine contractions. We will reassess in a couple of hours to see if she has any evidence of active labor. Dr. Renetta Mitchell is a physician coming on duty and we will make that judgment. Dr. Andrés Torres will be notified if she does end up staying for labor. Job ID: [id number]
--- NOTE | 2019-08-09 21:25 | PDOC.LDHP ---
Labor and Delivery H&P Chief complaint: contractions HPI: 24 y/o at 38w5d, patient of Dr. Andrés Torres, presents with ctx q 4-5 mins since this afternoon. Denies VB, LOF, or decreased FM. No other complaints. Was 4cm in clinic this morning. ROS neg for HEENT, cv, pulm, gi, gu, neuro, psych, skin, musculoskeletal or constitutional symptoms other than mentioned above. OB History Details: 2 prior term SVDs Current complications: none Past Medical History: migraines, UTIs Current medications: pre-quincy vitamins Previous surgical history: none Allergies/Adverse Reactions: Allergies Allergy/AdvReac Type Severity Reaction Status Date / Time No Known Allergies Allergy Verified 08/09/19 19:25 Social history: none - Physical Exam Vital signs reviewed and normal: yes General: NAD, resting Lungs: nonlabored breathing Abdomen: gravid Extremeties: no edema FHT: category 1 (140s, mod variability, + accels, no decels) [place] contractions every: occasional - Vaginal Exam cm dilated: 4 (unchanged after 2 hours) Effacement: 25% Station: -1 - Assessment 24 y/o at 38w5d with no e/o active labor. status reassuring with reactive NST. - Plan -: D/c home with precautions. Has induction scheduled for Wednesday.
== END 2019-08-09 21:30 | disposition home or self-care (01) ==
LOC: L&D/OP 18:45
PROVIDERS: ATTEND Family Medicine
DX: O47.1 False labor at or after 37 completed weeks of gestation (principal); Z3A.38 38 weeks gestation of pregnancy
CPT/HCPCS: 99283

== ENCOUNTER 2019-08-10 14:09 | Inpatient (IN) | payer OTHER ==
[2019-08-10] MEDS: Lactated Ringer's 1,000 ML IV SCH ×2 (14:30→16:00)
[2019-08-10] MEDS ORDERED: Promethazine HCl 25 MG/ML VIAL IM PRN ×2 (14:36→14:41)
[2019-08-10] MEDS ORDERED: hydrALAZINE 20 MG/ML VIAL SLOW IVP PRN ×3 (14:36→18:33)
[2019-08-10] MEDS ORDERED: Butorphanol Tartrate 1 MG/ML VIAL SLOW IVP PRN ×2 (14:36→14:41)
[2019-08-10] MEDS ORDERED: Ondansetron PF 4 MG/2 ML Vial IVP PRN ×2 (14:36→14:41)
[2019-08-10] MEDS ORDERED: Misoprostol 200 MCG TAB PR PRN ×2 (14:36→14:41)
[2019-08-10] MEDS ORDERED: Ibuprofen 800 MG TAB PO PRN ×2 (14:36→14:41)
[2019-08-10] MEDS ORDERED: Lidocaine 1% (PF) 30 ML VIAL SC PRN ×2 (14:36→14:41)
[2019-08-10] MEDS ORDERED: Methylergonovine 0.2 MG/ML VIAL IM PRN ×2 (14:36→14:41)
[2019-08-10] MEDS ORDERED: NS / Oxytocin 40 units/1000ml 1,000 ML IV PRN ×2 (14:36→14:41)
[2019-08-10] MEDS ORDERED: HYDROcodone/Acetaminophen 5/325 mg Tablet PO PRN ×2 (14:36→14:41)
[2019-08-10] MEDS ORDERED: Lactated Ringer's 1,000 ML IV SCH (14:41)
[2019-08-10] MEDS ORDERED: NS w/ Oxytocin 10 units 500 ML IV SCH (14:41)
[2019-08-10 14:53] VITALS: BMI 28.3
[2019-08-10 15:01] LABS: Hemoglobin 11.1 g/dL (12.0-16.0); Mean Corpuscular HGB CONC 32.7 g/dL (32.0-36.0); Mean Corpuscular Hemoglobin 26.8 pg (27.0-31.0); Mean Platelet Volume 7.9 fL (7.4-10.4); Platelet Count 243 thou/uL (130-400); RBC Distribution Width 13.4 % (11.5-14.5); Red Blood Cell (RBC) Count 4.13 mill/uL (4.20-5.40)
[2019-08-10] MEDS ORDERED: Lidocaine 1% (PF) 30 ML VIAL ONE (15:05)
[2019-08-10] MEDS ORDERED: NS / Oxytocin 40 units/1000ml 1,000 ML ONE (15:05)
[2019-08-10 15:41] LABS: Syphilis Antibody Nonreactive (Nonreactive); Syphilis Antibody Index 0.06 S/CO (<1.00 Non-Reactive)
[2019-08-10 15:42] LABS: HBSAg Index 0.17 S/CO (0-0.99); Hep B Surf Ag Non-Reactive S/CO (NonReactive)
--- NOTE | 2019-08-10 16:43 | HP ---
HISTORY OF PRESENT ILLNESS: This is a 24-year-old [place] female, G3, P2, at 39 weeks' gestation with the EDC of 08/18/2019, being admitted for elective Pitocin induction. The patient's course has been uncomplicated. She has had multiple admissions to the hospital for abdominal pain. She has been having occasional contractions over the past several days. In clinic on 08/09, she was noted to be 3 cm dilated, 50%, -2, vertex presentation. PAST MEDICAL HISTORY: Unremarkable. PAST SURGICAL HISTORY: Spontaneous vaginal delivery x2. FAMILY HISTORY: Unremarkable. SOCIAL HISTORY: She is . She has one daughter, one son. She works as a [employer] on [employer]. REVIEW OF SYSTEMS: As above. PHYSICAL EXAMINATION: VITAL SIGNS: Stable. Afebrile. HEART: Regular rate and rhythm without murmur. LUNGS: Clear. ABDOMEN: Soft, gravid. Cervix, 3, 50, -2. EXTREMITIES: No edema. LABORATORY DATA: Hematocrit 32.5. HIV negative. 1-hour, 88, hepatitis B negative. Rubella immune. Urine culture negative. Paps are normal. Thyroid normal. O positive blood type. RPR negative. GC and Chlamydia negative. GBS pending. ASSESSMENT: Term . PLAN: 1. Routine L and D orders. 2. Routine Anesthesia evaluation. 3. Pitocin augmentation. 4. Anticipate normal vaginal delivery. Job ID: [id number]
[2019-08-10] MEDS: Acetaminophen 500 MG TAB PO PRN (17:42)
[2019-08-10] MEDS ORDERED: Milk Of Magnesia 30 ML UDCUP PO PRN (18:33)
[2019-08-10] MEDS ORDERED: Adacel (T-DAP) 0.5 ML SYRINGE IM ONE (18:33)
[2019-08-10] MEDS ORDERED: Bisacodyl 10 MG SUPP PR PRN (18:33)
[2019-08-10] MEDS ORDERED: NS / Oxytocin 40 units/1000ml 1,000 ML IV SCH (18:33)
[2019-08-11] MEDS: Acetaminophen 500 MG TAB PO PRN (02:37)
[2019-08-11] MEDS: Ibuprofen 800 MG TAB PO SCH ×3 (03:07→20:41)
[2019-08-11] MEDS: Docusate Calcium (SURFAK) 240 MG CAP PO SCH ×3 (03:50→20:40)
[2019-08-11] MEDS: HYDROcodone/Acetaminophen 5/325 mg Tablet PO PRN ×3 (06:20→22:09)
[2019-08-11] MEDS: Ferrous Sulfate 325 MG TAB PO SCH ×2 (07:43→18:20)
--- NOTE | 2019-08-11 08:22 | OP ---
DATE OF PROCEDURE: 08/10/2019 POSTOPERATIVE DIAGNOSIS: Term . POSTOPERATIVE DIAGNOSIS: Term . PROCEDURE: Spontaneous vaginal delivery. DESCRIPTION OF PROCEDURE: This is a 24-year-old female, G3, P2, taken to delivery, or incomplete pushing. Prepped and draped sterilely. Delivered a baby girl, Apgars of 8 at one minute, 9 at 5 minutes. Baby did breathe and cry vigorously upon delivery. Estimated blood loss was 150 mL. No lacerations present. Uterus firm. Mother and baby did well. Job ID: [id number]
[2019-08-11] MEDS ORDERED: FLU VACC QS2019-20(6MOS UP)/PF 60 MCG/0.5 ML SYRINGE IM ONE ×2 (09:00→10:00)
[2019-08-12] MEDS: Ibuprofen 800 MG TAB PO SCH (04:21)
[2019-08-12 08:19] VITALS: BP 118/79; TEMP 98.6
[2019-08-12] MEDS: Ferrous Sulfate 325 MG TAB PO SCH (09:05)
[2019-08-12] MEDS: Docusate Calcium (SURFAK) 240 MG CAP PO SCH (09:05)
[2019-08-12] MEDS ORDERED: FLU VACC QS2019-20(6MOS UP)/PF 60 MCG/0.5 ML SYRINGE IM ONE (12:50)
== END 2019-08-12 13:50 | disposition home or self-care (01) | DRG 807 ==
LOC: L&D 14:09 → 3SW 08-11 01:07 → L&D 08-11 01:11 → 3SW 08-11 02:45
PROVIDERS: ADMIT Family Medicine; ATTEND Family Medicine
PROC: 10E0XZZ Delivery of Products of Conception, External Approach (ICD-10-PCS; principal; 2019-08-10)
PROC: 3E033VJ Introduction of Other Hormone into Peripheral Vein, Percutaneous Approach (ICD-10-PCS; 2019-08-10)
DX: O80 Encounter for full-term uncomplicated delivery (principal); Z37.0 Single live birth; Z3A.39 39 weeks gestation of pregnancy
CPT/HCPCS: 85027; 86780; 86850; 86900; 86901; 87081; 87340; 90471; 90686; 90715; 99283; 99285; G0008; J2001

== ENCOUNTER 2020-11-14 18:27 | Emergency (ER) | payer SELFPAY ==
--- NOTE | 2020-11-14 19:38 | ULT ---
Exam: Right upper quadrant ultrasound: HISTORY: Right upper quadrant abdominal pain with onset of symptoms one day ago. Symptoms are worse today COMPARISON: 02/12/2019 FINDINGS: Liver: Within normal limits Gallbladder: The gallbladder is contracted. Gallbladder wall is at the upper limits of normal in thic kness measuring 0.3 cm, but this is likely attributable to incomplete distention. No gallbladder calculus is seen, and there is no pericholecystic fluid. Spraying Machine Operator does report a positive sono graphic Tolbert's sign. Common bile duct: The common duct is normal in caliber measuring 0.5 cm in diameter. Pancreas: Limited visualized portions of the pancreas demonstrate a normal sonographic appearance. Right kidney: Right kidney demonstrates a normal sonographic appearance. The right kidney measures 1 0 cm in length. IVC: The visualized IVC demonstrates a normal sonographic appearance. IMPRESSION: 1. Gallbladder is mildly contracted, but no gallbladder calculus is seen. No pericholecystic fluid is identified. Spraying Machine Operator does note a positive sonographic Tolbert's sign. 2. Common duct is normal in caliber. 3. No evidence of hydronephrosis.
[2020-11-14 20:15] LABS: #Eosinphils 0.1 thou/uL (0.0-0.7); #Lymphocytes 3.2 thou/uL (1.20-3.40); #Monocytes 0.4 thou/uL (0.11-0.59); %Basophils 0.7 % (0.0-1.0); %Eosinophils 1.7 % (0.0-10.0); %Lymphocytes 47.4 % (21.0-51.0); %Monocytes 5.2 % (0.0-10.0); Hemoglobin 13.7 g/dL (12.0-16.0); Mean Corpuscular Hemoglobin 29.8 pg (27.0-31.0); Mean Corpuscular Volume 87.5 fL (78.0-98.0); Mean Platelet Volume 7.8 fL (7.4-10.4); Platelet Count 220 thou/uL (130-400); RBC Distribution Width 11.1 % (11.5-14.5); Red Blood Cell (RBC) Count 4.59 mill/uL (4.20-5.40); White Blood Cell (WBC) Count 6.7 thou/uL (4.8-10.8)
[2020-11-14 20:37] LABS: ALT (SGPT) 14 U/L (8-55); AST (SGOT) 15 U/L (5-34); Alkaline Phosphatase 82 U/L (40-110); Anion Gap 12 mmol/L (10-20); BUN (Urea Nitrogen) 10 mg/dL (7.0-18.7); Bilirubin, Total 0.3 mg/dL (0.2-1.2); Calc. Creatinine Clearance 0 mL/min (70-130); Calcium 8.7 mg/dL (7.8-10.44); Carbon Dioxide 25 mmol/L (22-29); Chloride 106 mmol/L (98-107); Globulin 2.8 g/dL (2.4-3.5); Glucose 93 mg/dL (70-105); Lipase 35 U/L (8-78); Potassium 3.7 mmol/L (3.5-5.1); Protein, Total 6.8 g/dL (6.0-8.3); Sodium 139 mmol/L (136-145)
[2020-11-14] MEDS ORDERED: Ondansetron PF 4 MG/2 ML Vial ONE (20:52)
[2020-11-14 20:58] LABS: Bilirubin Negative (Negative); Blood, Urine Negative (Negative); Clarity Clear (Clear); Glucose, Urine (Dipstick) Normal (Negative); Ketone, Urine Negative (Negative); Leukocyte Negative Leu/uL (Negative); Nitrite Negative (Negative); Protein, Urine (Dipstick) Negative (Neg-Trace); Specific Gravity, Urine 1.013 (1.002-1.036); Urobilinogen Normal mg/dL (Less than 2)
[2020-11-14 21:00] LABS: Pregnancy Test - Urine (BHCG) Negative (Negative); Pregu Control Background? CLEAR/WHITE (CLR/WHITE); Pregu Control Bar Appear? YES (CONTROL BAR); Specific Gravity 1.013 (1.002-1.036)
[2020-11-14] MEDS ORDERED: Ketorolac Tromethamine 30 MG/ML VIAL ONE (21:21)
== END 2020-11-14 21:33 | disposition home or self-care (01) ==
LOC: ERS 18:27
DX: K80.50 Calculus of bile duct without cholangitis or cholecystitis without obstruction (principal)
CPT/HCPCS: 36415; 76705; 80053; 81003; 81025; 83690; 85025; 96374; 96375; J1885; J2405

== ENCOUNTER 2021-04-19 18:25 | Emergency (ER) | payer OTHER, SELFPAY ==
[2021-04-19 19:10] LABS: #Basophils 0.1 thou/uL (0.0-0.2); #Eosinphils 0.1 thou/uL (0.0-0.7); #Lymphocytes 1.9 thou/uL (1.20-3.40); #Monocytes 0.8 thou/uL (0.11-0.59); #Neutrophils 5.1 thou/uL (1.40-6.50); %Basophils 0.6 % (0.0-1.0); %Eosinophils 1.3 % (0.0-10.0); %Lymphocytes 23.9 % (21.0-51.0); %Monocytes 9.7 % (0.0-10.0); %Neutrophils 64.5 % (42.0-75.0); Hemoglobin 13.7 g/dL (12.0-16.0); Mean Corpuscular HGB CONC 34.4 g/dL (32.0-36.0); Mean Corpuscular Hemoglobin 31.4 pg (27.0-31.0); Mean Corpuscular Volume 91.2 fL (78.0-98.0); Mean Platelet Volume 7.3 fL (7.4-10.4); Platelet Count 220 thou/uL (130-400); RBC Distribution Width 11.3 % (11.5-14.5); Red Blood Cell (RBC) Count 4.37 mill/uL (4.20-5.40); White Blood Cell (WBC) Count 7.9 thou/uL (4.8-10.8)
[2021-04-19] MEDS ORDERED: Ondansetron ODT 4 MG TAB ONE (19:13)
[2021-04-19 19:47] LABS: Bilirubin Negative (Negative); Blood, Urine Negative (Negative); Clarity Clear (Clear); Glucose, Urine (Dipstick) Normal (Negative); Ketone, Urine Negative (Negative); Leukocyte Negative Leu/uL (Negative); Nitrite Negative (Negative); Protein, Urine (Dipstick) Negative (Neg-Trace); Specific Gravity, Urine 1.007 (1.002-1.036); Urobilinogen Normal mg/dL (Less than 2); pH, Urine 6.5 (5.0-9.0)
[2021-04-19 19:49] LABS: Pregnancy Test - Urine (BHCG) Negative (Negative); Pregu Control Background? CLEAR/WHITE (CLR/WHITE); Pregu Control Bar Appear? YES (CONTROL BAR); Specific Gravity 1.007 (1.002-1.036)
[2021-04-19] MEDS ORDERED: Ibuprofen 800 MG TAB ONE (20:23)
[2021-04-19] MEDS ORDERED: Acetaminophen 500 MG TAB ONE (20:23)
== END 2021-04-19 21:22 | disposition home or self-care (01) ==
LOC: ERS 18:25
DX: R10.2 Pelvic and perineal pain (principal); R10.9 Unspecified abdominal pain; R11.0 Nausea; Z97.5 Presence of (intrauterine) contraceptive device
CPT/HCPCS: 36415; 76856; 81003; 81025; 85025; Q0162